=== PATIENT | female | born 2000 | race Caucasian/White ===

== ENCOUNTER 2024-12-12 01:54 | Inpatient (IN) ==
[2024-12-12] MEDS ORDERED: METHYLERGONOVINE 0.2 MG/ML VIAL IM PRN (02:08)
[2024-12-12] MEDS ORDERED: NIFEdipine 10 MG CAPSULE PO PRN (02:08)
[2024-12-12] MEDS ORDERED: fentaNYL 100 MCG/2 ML VIAL IVP PRN (02:08)
[2024-12-12] MEDS ORDERED: OXYTOCIN 10 UNIT/ML VIAL IM PRN (02:08)
[2024-12-12] MEDS ORDERED: ACETAMINOPHEN 325 MG TABLET PO PRN (02:08)
[2024-12-12] MEDS ORDERED: hydrALAZINE INJ 20 MG/ML VIAL IVP PRN ×2 (02:08)
[2024-12-12] MEDS ORDERED: ONDANSETRON 4 MG/2 ML VIAL IVP PRN (02:08)
[2024-12-12] MEDS ORDERED: SODIUM CHLORIDE FLUSH 0.9% 10 ML SYRINGE IVP PRN (02:08)
[2024-12-12] MEDS ORDERED: lidocaine 1% 20 ML MDV ID PRN (02:08)
[2024-12-12] MEDS ORDERED: ONDANSETRON ODT 4 MG TABLET TL PRN (02:08)
[2024-12-12] MEDS ORDERED: LABETALOL 20 MG/4 ML SYRINGE IVP PRN ×3 (02:08)
[2024-12-12] MEDS ORDERED: LACTATED RINGERS 1,000 ML IV PRN (02:08)
[2024-12-12 02:52] LABS: BASOPHILS # (AUTO) 0.1 10^3/uL (0.0-0.1); BASOPHILS % (AUTO) 0.5 %; EOSINOPHILS # (AUTO) 0.4 10^3/uL (0.0-0.7); EOSINOPHILS % (AUTO) 3.5 %; HCT - HEMATOCRIT 35.1 % (37.0-47.0); HGB - HEMOGLOBIN 11.4 g/dL (12.0-16.0); LYMPHOCYTES # (AUTO) 3.5 10^3/uL (1.5-3.5); LYMPHOCYTES % (AUTO) 29.7 %; MEAN CORPUSCULAR HEMOGLOBIN 31.1 pg (27.0-31.0); MEAN CORPUSCULAR HGB CONC 32.5 g/dL (32.0-36.0); MEAN CORPUSCULAR VOLUME 95.6 fL (81.0-99.0); MEAN PLATELET VOLUME 11.9 fL (7.9-10.8); MONOCYTES # (AUTO) 0.8 10^3/uL (0.0-1.0); MONOCYTES % (AUTO) 6.5 %; NEUTROPHILS # (AUTO) 6.8 10^3/uL (1.5-6.6); NRBC ABSOLUTE COUNT (AUTO) 0.02 x10^3/uL; NUCLEATED RED BLOOD CELLS AUTO 0.2 /100WBC; PLT - PLATELET COUNT 202 10^3/uL (130-450); RED BLOOD COUNT 3.67 10^6/uL (4.20-5.40); RED CELL DISTRIBUTION WIDTH 13.1 % (12.0-15.0); WHITE BLOOD COUNT 11.8 x10^3/uL (4.8-10.8)
[2024-12-12 03:06] LABS: ALBUMIN 3.5 g/dL (3.2-5.5); ALBUMIN/GLOBULIN RATIO 1.3 (1.0-2.2); BILIRUBIN,TOTAL 0.2 mg/dL (0.2-1.0); CALCIUM 8.7 mg/dL (8.5-10.3); CREATININE 0.5 mg/dL (0.6-1.3); POTASSIUM 3.8 mmol/L (3.5-4.5); TOTAL PROTEIN 6.2 g/dL (6.4-8.9)
[2024-12-12] MEDS: miSOPROStoL 100 MCG TABLET VG SCH (04:09)
[2024-12-12] MEDS: SODIUM CHLORIDE FLUSH 0.9% 10 ML SYRINGE IVP SCH (04:15)
[2024-12-12] MEDS ORDERED: metFORMIN 500 MG TABLET PO SCH (09:00)
--- NOTE | 2024-12-12 09:02 | HISTORY & PHYSICAL EXAMINATION ---
Admit History Visit Reason Visit Reason: Other (IOL) Smoking Status: Never smoker Other Maternal History Other Maternal History: HPI: Keisha is a 24 yo at 39w4d who is admitted for induction of labor in the setting A2DM on metformin. Presented for IOL overnight. Has received one dose of vaginal misoprostol. Seen at bedside with nurse and video Swedish interpretor. Feeling some contractions but they are not painful. Otherwise feeling well. Last growth US: 12/10/24 EFW 3544 g, 55 percentile. AC 90%tile. monitoring form, copied from record: LMP: uncertain (maybe sometime in Mar) ADRYAN by LMP: U/S: 07/25/24 @ 20+3 Final ADRYAN: 12/15/2024 BY 20WK US Pre- weight: 138 BMI: 25.8 - A1DM - referral for DM education, scheduled for 11/02. - growth US 10/16 EFW 69%tile, vertex, normal PEREZ, growth US ordered 11/22/24 - IOL between [id number] -started metformin at dinner 500 mg 36w5d and NSTs weekly to start 37 weeks. - Chlamydia on 07/25, treated. Swab repeated 08/23 neg. repeat before its a BOY - baby Rik Blood type:O+ Antibody screen:NEG CBC: 12.6/37.5/315 Rubella:NON IMM VZV:IMM HBsAg: NEG HepC: NR RPR/AB-EIA: NR HIV: NR Flu: 07/25/24 COVID: declines PAP: never - will collected . GC/CT: 07/25/24- POSITIVE CHLAMYDIA. 08/23/24 negative RECHECK AT 37WKS HSV: denies self/partner Genetic Testing: declined FAS:07/31 Placenta: fundal w/o previa Cord:3VC PEREZ: 16.2cm wnl EFW: 338g, no percentile 50gm GCT: 152 3 hr GTT: F 100 1H 236 2H 235 3H 137 TDAP: 09/20/2024 Breast Pump: 09/20/2024 3rd trimester PLT 279 HCT 35.0 HGB 11.8 3rd trimester RPR NR RSV- 11/13/24 GBS: 11/22/24 Delivery plan: IOL scheduled for 12/11 at 8am. contraception: possibly Nexplanon PE: Vitals signs reviewed in Centricity Gen: NAD Resp: non labored respirations Abd: gravid, non tender. EFW 3600g Ext: trace LE edema SVE: fingertip on presentation per RN report monitoring: FHTs: 140s bpm baseline, + accel, - decel, mod variability [place]: irregular, not painful FHTs: Cat 1 Labs: CBC, CMP, T&S reviewed A/P: Keisha is a 24 yo at 39w4d who is admitted for induction of labor: A2DM on metformin. GBS neg Rubella non immune - IOL consents previously reviewed and signed. - IOL started with PV misoprostol, we discussed other methods for cervical ripening/labor induction including cervical ripening balloon, pitocin, and AROM - Pain management per her request. - Will continue metformin 500mg BID for now with BG checks fasting and 2hr postprandial. Will check BGs more frequently once in labor. - We discussed possible increased risk of shoulder dystocia with AC > 90%tile (although, overall EFW 55%tile). Would recommend watching labor progress closely. We have discussed possible maternal and risks in the setting of a shoulder dystocia including possible increased risk of high degree maternal tears, nerve injury/brain injury/. She does express understanding. Jacinto Sanford MD HPI Current : Vital Signs Temperature 99.1 F 12/12/24 04:17 Pulse Rate 74 12/12/24 06:06 Respiratory Rate 17 12/12/24 04:17 Blood Pressure 135/73 H 12/12/24 06:06 O2 Saturation 99 12/12/24 04:17 Meds/Allgy Home Medications Ambulatory Orders Medication Instructions Recorded Confirmed vits no.126-ferrous fum 1 tab PO DAILY 07/04/24 12/12/24 28 mg iron-folic acid 800 mcg tablet (Classic ) blood sugar diagnostic (Blood #50 ea 09/21/24 11/22/24 Glucose Test strips) blood-glucose meter #1 ea 09/21/24 11/22/24 empty container (Needle Collection #1 ea 09/21/24 11/22/24 and Disposal misc) lancets 30 gauge (BD Microtainer #200 ea 09/21/24 11/22/24 Lancet) metformin 500 mg tablet 500 mg PO .daily before dinner #30 11/22/24 12/12/24 tabs Allergies Allergies Allergy/AdvReac Type Severity Reaction Status Date / Time No Known Drug Allergies Allergy Verified 11/22/24 13:24 PFSH Active Problems All Active Problems (Updated 09/21/24 @ 21:21 by Valerie Mckeon MD) Chlamydia (Acute) Gestational diabetes (Acute) Late care (Acute) Supervision of normal first (Acute) Social History Social History (Updated 07/04/24 @ 14:31 by Samra Gallo RN) Smoking Status: Never smoker Second hand tobacco smoke exposure: No Do you dip or chew tobacco?: No Do you vape?: No Living arrangement: At home Living Condition: With spouse/s.o. Level: Independent ETOH Use: None Substance Use: denies use Are you sexually active?: Yes Control Method: None Occupation: unemployed Physical Abdominal Exam Vital Signs: Temp Pulse Resp BP Pulse Ox 99.1 F 74 17 135/73 H 99 12/12/24 04:17 12/12/24 06:06 12/12/24 04:17 12/12/24 06:06 12/12/24 04:17 Plan for Labor Plan For Labor I expect patient to be DC'd or transferred within 96 hours.: Yes Conclusion/Plan Lab Results 12/12/24 02:40 12/12/24 02:40
[2024-12-12] MEDS: metFORMIN 500 MG TABLET PO SCH (10:00)
--- NOTE | 2024-12-12 12:08 | PHARMACY PROGRESS NOTE ---
Best Possible Medication History Admit Date and Time: 12/12/24 0208 Home Medications Medication Instructions Recorded Confirmed Type vits no.126-ferrous fum 1 tab PO DAILY 07/04/24 12/12/24 History 28 mg iron-folic acid 800 mcg tablet (Classic ) blood sugar diagnostic (Blood #50 ea 09/21/24 11/22/24 Rx Glucose Test strips) blood-glucose meter #1 ea 09/21/24 11/22/24 Rx empty container (Needle Collection #1 ea 09/21/24 11/22/24 Rx and Disposal misc) lancets 30 gauge (BD Microtainer #200 ea 09/21/24 11/22/24 Rx Lancet) metformin 500 mg tablet 500 mg PO .daily before dinner #30 11/22/24 12/12/24 Rx tabs Processed by: Pharmacy (Medication Reconciliation completed by Milking WorkerMarylu) Medications reviewed in ED?: No Medication History completed: Yes Patient Interview: Completed Secondary Source(s): Insurance records [facility] Statement: As the person ultimately responsible for medication therapy, providers are able to order a medication from an existing home medication list in [facility] via the "Reconcile Routine" prior to Confirmation of that medication by client technical support associate. Such practice is discouraged except when the physician, in their clinical judgment, deems that a medical need exists for a medication without regard to previous use.
[2024-12-12] MEDS: diphenhydrAMINE 25 MG CAPSULE PO PRN (22:40)
--- NOTE | 2024-12-13 06:58 | PROVIDER PROGRESS NOTE ---
Labor Progress Note Labor Progress Note Labor Progress Note/Additional Text: Patient doing well. No significant complaints, but contractions, when present, are moderate to intense. Every 4 to 6 minutes. heart tracing 140 bpm baseline, moderate variability, accelerations present, no decelerations. Contr actions every 4 to 6 minutes. Delivered to come out in approximately 2 hours, will recheck, consider amniotomy versus oxytocin at that time.
[2024-12-13] MEDS: PRENATAL VITAMIN TABLET PO SCH (08:15)
--- NOTE | 2024-12-13 20:17 | PROVIDER PROGRESS NOTE ---
Labor Progress Note Labor Progress Note Labor Progress Note/Additional Text: Examined patient after had a small amount of fluid. Balloon still in place, as I checked the patient, balloon was in the vagina, so deflated a little and removed from the vagina. Bulging membrane felt intact, so amniotomy was performed after discussing with patient. Moderate amount of clear fluid. Cervical exam 5/80/-2. heart tracing 140 beats per baseline, moderate variability, accelerations present, no decelerations. Category 1. Contractions every 2 to 6 minutes. Continue expectant management at this time. If hypotonic uterine contractions, will consider oxytocin.
[2024-12-14] MEDS: SODIUM CHLORIDE 0.9% 1,000 ML IY ONE (00:50)
--- NOTE | 2024-12-14 03:05 | PROVIDER PROGRESS NOTE ---
Labor Progress Note Uterine Monitoring Contraction Intensity: positive Strong Monitoring Monitor Mode: positive External ultrasound Heart Rate Baseline: 150 Heart Rate Variability: positive Moderate (6-25 bmp) Accelerations: positive Present, 15x15 Decelerations: positive Early, Variable and Intermittent (<50% x20 min) Strip Review: positive Category II Labor Progress Note Labor Progress Note/Additional Text: Patient continues to labor on her own without augmentation after amniotomy. Contractions are very spaced out, but very long lasting, about 2-3 minutes. Mixture of variable and early decelerations. Amnioinfusion running and some improvement. Making good progress though, and currently 9 cm. Discussed epidural, but since she is 9cm decided to wait on epidural. Will recheck shortly as progressing quickly.
[2024-12-14] MEDS ORDERED: LIDOCAINE 2%-EPI 1:100000 20 ML MDV ONE (04:52)
[2024-12-14] MEDS ORDERED: ROPIVACAINE 0.2% 200 MG/100 ML BAG EP ONE (04:52)
[2024-12-14] MEDS ORDERED: diphenhydrAMINE INJ 50 MG/ML VIAL IVP PRN (05:56)
[2024-12-14] MEDS ORDERED: LACTATED RINGERS 500 ML IV ONE (05:56)
[2024-12-14] MEDS ORDERED: ONDANSETRON 4 MG/2 ML VIAL IVP PRN (05:56)
[2024-12-14] MEDS ORDERED: NALBUPHINE 10 MG/ML AMP IVP PRN (05:56)
[2024-12-14] MEDS ORDERED: METOCLOPRAMIDE 10 MG/2 ML VIAL IVP PRN (05:56)
[2024-12-14] MEDS ORDERED: ROPIVACAINE 0.2% 200 MG/100 ML BAG EP PRN (05:56)
[2024-12-14] MEDS ORDERED: NALOXONE 0.4 MG/ML VIAL IVP PRN ×2 (05:56→10:45)
[2024-12-14] MEDS ORDERED: ePHEDrine 50 MG/ML VIAL IVP PRN (05:56)
--- NOTE | 2024-12-14 05:59 | ANESTHESIA PROCEDURE NOTE ---
Pre-Anesthesia VS, & Labs Diagnosis Surgical Diagnosis:: 39w4d, IOL for GDM, on metformin/labor pain Procedure Procedure: placement of labor epidural Vitals Vital Signs: Temp Pulse Resp BP Pulse Ox 36.8 C 92 16 132/76 H 98 12/13/24 16:30 12/13/24 16:30 12/13/24 16:30 12/13/24 16:30 12/13/24 16:30 Height (in): 5 ft 1 in Weight (kg): 79 kg Body Mass Index: 32.9 BMI Classification: Obese NPO Last Fluid Intake: currently clears Is Patient ?: Yes Estimated Due Date:: 12/14/24 Lab Results Current Lab Results: Laboratory Tests 12/14/24 05:52: POC Whole Bld Glucose 143 12/14/24 03:15: POC Whole Bld Glucose 110 12/14/24 00:19: POC Whole Bld Glucose 82 12/13/24 22:18: POC Whole Bld Glucose 83 12/13/24 19:44: POC Whole Bld Glucose 94 12/13/24 13:55: POC Whole Bld Glucose 109 12/13/24 09:55: POC Whole Bld Glucose 103 12/13/24 07:19: POC Whole Bld Glucose 81 12/13/24 03:15: POC Whole Bld Glucose 108 12/12/24 20:28: POC Whole Bld Glucose 90 12/12/24 14:47: POC Whole Bld Glucose 85 12/12/24 10:30: POC Whole Bld Glucose 104 12/12/24 07:36: POC Whole Bld Glucose 82 12/12/24 02:40: WBC 11.8 H, RBC 3.67 L, Hgb 11.4 L, Hct 35.1 L, MCV 95.6, MCH 31.1 H, MCHC 32.5, RDW 13.1, Plt Count 202, MPV 11.9 H, Neut # (Auto) 6.8 H, Lymph # (Auto) 3.5, [place] # (Auto) 0.8, Eos # (Auto) 0.4, Baso # (Auto) 0.1, Absolute Nucleated RBC 0.02, Nucleated RBC % 0.2, Sodium 133 L, Potassium 3.8, Chloride 105, Carbon Dioxide 19 L, Anion Gap 9.0, BUN 16, Creatinine 0.5 L, Estimated GFR (MDRD) 153, Glucose 119 H, Calcium 8.7, Total Bilirubin 0.2, AST 23, ALT 19, Alkaline Phosphatase 176 H, Total Protein 6.2 L, Albumin 3.5, Globulin 2.7, Albumin/Globulin Ratio 1.3, Blood Type O POSITIVE, Antibody Screen NEGATIVE Lab results reviewed: Yes 12/12/24 02:40 12/12/24 02:40 Meds/Allgy Home Medications Ambulatory Orders Medication Instructions Recorded Confirmed vits no.126-ferrous fum 1 tab PO DAILY 07/04/24 12/12/24 28 mg iron-folic acid 800 mcg tablet (Classic ) blood sugar diagnostic (Blood #50 ea 09/21/24 11/22/24 Glucose Test strips) blood-glucose meter #1 09/21/24 11/22/24 empty container (Needle Collection #1 ea 09/21/24 11/22/24 and Disposal misc) lancets 30 gauge (BD Microtainer #200 09/21/24 11/22/24 Lancet) metformin 500 mg tablet 500 mg PO .daily before dinner #30 11/22/24 12/12/24 tabs Allergies Allergies Allergy/AdvReac Type Severity Reaction Status Date / Time No Known Drug Allergies Allergy Verified 11/22/24 13:24 PFSH Active Problems All Active Problems Gestational diabetes (Acute) Chlamydia (Acute) Late care (Acute) Supervision of normal first (Acute) Social History Social History Smoking Status: Never smoker Second hand tobacco smoke exposure: No Do you dip or chew tobacco?: No Do you vape?: No Living arrangement: At home Living Condition: With spouse/s.o. Level: Independent ETOH Use: None Substance Use: denies use Are you sexually active?: Yes Control Method: None Occupation: unemployed Anesthesia Exam (Expanded) Exam General: Mild distress Dental: WNL Mouth Openin Fingerbreadth Neck Mobility: Normal Mallampati classification: II Thyromental Distance: 4-6 cm Plan Plan Anesthesia Type: Epidural Consent for Procedure(s) Verified and Reviewed: Yes Code Status: Attempt Resuscitation ASA Classification ASA classification: 2-Mild systemic disease Is this case an emergency?: No
[2024-12-14] MEDS: OXYTOCIN/SODIUM CHLORIDE 500 ML IV PRN (06:06)
[2024-12-14] MEDS: LACTATED RINGERS 1,000 ML IV PRN (09:26)
[2024-12-14] MEDS: CARBOPROST TROMETHAMINE 250 MCG/ML VIAL IM PRN (10:03)
[2024-12-14] MEDS: miSOPROStoL 200 MCG TABLET BC PRN (10:06)
[2024-12-14] MEDS: TRANEXAMIC ACID IN NACL 1,000 MG/100 ML BAG IV PRN (10:07)
[2024-12-14] MEDS ORDERED: HYDROCORTISONE 1% CREAM 28 GM TUBE TOP PRN (10:45)
[2024-12-14] MEDS ORDERED: WITCH HAZEL/GLYCERIN 1 PAD TOP PRN (10:45)
[2024-12-14] MEDS ORDERED: hydrALAZINE INJ 20 MG/ML VIAL IVP PRN ×2 (10:45)
[2024-12-14] MEDS ORDERED: NIFEdipine 10 MG CAPSULE PO PRN (10:45)
[2024-12-14] MEDS ORDERED: SIMETHICONE CHEW 80 MG TABLET PO PRN (10:45)
[2024-12-14] MEDS ORDERED: oxyCODONE 5 MG TABLET PO PRN (10:45)
[2024-12-14] MEDS ORDERED: LABETALOL 20 MG/4 ML SYRINGE IVP PRN ×2 (10:45)
[2024-12-14] MEDS ORDERED: OXYTOCIN/SODIUM CHLORIDE 500 ML IV PRN (10:45)
[2024-12-14] MEDS ORDERED: LABETALOL 5 MG/1 ML 20 ML MDV IVP PRN (10:45)
[2024-12-14] MEDS: ceFAZolin (2G) 2 GM in SODIUM CHLORIDE 0.9% MINIBAG 100 ML IV ONE (11:39)
--- NOTE | 2024-12-14 11:47 | DELIVERY NOTE ---
Delivery Note Labor Labor: positive Augmented by ARM Delivery Method Delivery Method: positive Spontaneous vaginal delivery Cervical Ripening Method Cervical Ripening Method: positive Balloon device and Misoprostil Presentation Presentation: positive Vertex and FRANCISCO - right occiput anterior Nuchal Cord Nuchal Cord: positive Present Amniotic Fluid Description Amniotic Fluid Description: positive Clear Episiotomy Type Episiotomy Type: positive None Laceration Laceration: positive 2nd degree Suture Suture Size: positive 3-0 (Rapide) Delivery Outcome Delivery Date: 12/14/24 Delivery Time: 09:54 Delivery Outcome: positive Livebirth [place]: positive Placed in direct skin contact with mother and Stimulated [place] sex: positive Male Cord Cord: positive 3 vessels Placenta Placenta: positive Spontaneous and Curettage Estimated Blood Loss Estimated Blood Loss (in cc): 522 Post Delivery Events Post Delivery Events: positive Other (intermittent atony, retained membranes) Delivery Comments (Free Text/Narrative) Delivery Comments (Free Text/Narrative): I was called to the bedside for patient complete and ready to deliver. After delivery of the head, the anterior shoulder did not immediately delivery with gentle downward traction. I felt for the location of the anterior shoulder again and then gentle downward pressure was applied once more and the anterior shoulder delivered easily. The posterior shoulder then the remainder of the body followed. The infant was placed on the mother's abdomen. After 60 sec the cord was clamped times two and cut. Cord blood collected. Pitocin was started. The placenta delivered spontaneously very quickly. Intermittent atony was noted and bimanual massage performed. She received IM hemabate, followed by IV TXA and 600mcg buccal misoprostol. On bimaual exam, small amount of membranes were palpable on the anterior uterine wall with intermittent gushes of blood. Using Northern Irish interpretor, I recommended that we perform a gentle currettage to ensure no membranes/placental tissue remained. The bladder was emptied with a red rubber catheter. Gentle curretage was performed with US guidance. Bleeding improved and good uterine tone noted. The 2nd degree perineal laceration was repaired with 3-0 Rapide. Perineal hemostasis noted at completion of procedure. Laps were weighed with 322cc estimate, plus approximately 200cc of blood in the bag mixed with significant amount of amniotic fluid. Total estimated to be 522cc. Plan for 2g ancef. Jacinto Sanford MD
[2024-12-14] MEDS: ACETAMINOPHEN 500 MG TABLET PO PRN (11:53)
[2024-12-14] MEDS: IBUPROFEN 600 MG TABLET PO PRN (11:54)
[2024-12-14] MEDS: DIPHENOX/ATROPINE 2.5/0.025 MG TABLET PO PRN (12:54)
[2024-12-15] MEDS: DOCUSATE SODIUM 100 MG CAPSULE PO SCH (09:14)
[2024-12-15] MEDS ORDERED: MEASLES,MUMPS & RUBELLA VACC 0.5 ML VIAL SUBQ ONE (10:02)
--- NOTE | 2024-12-15 10:02 | PROVIDER PROGRESS NOTE ---
Subjective Prog Note Date Prog Note Date: 12/15/24 Prog Note Time: 10:01 Subjective Subjective: Reports some cramping as well as discomfort from her laceration repair. RN at bedside at time of interview with pain medications to give her. She does feel like they help. She has been up ambulating around room. Urinating without difficulty. Reports that bleeding has been appropriate. She is and supplementing with formula. Current Medications Current Medications Current Medications: Current Medications Generic Name Dose Route Start Last Admin Trade Name Verito PRN Reason Stop Dose Admin Acetaminophen 650 mg 12/12/24 02:08 Acetaminophen 325 Mg Tablet PO Q6H PRN Mild Pain or Fever>38C(100.4F) Acetaminophen 1,000 mg 12/14/24 10:45 12/15/24 09:11 Acetaminophen 500 Mg Tablet PO 1,000 mg Q8HR PRN Administration Mild Pain or Fever>38C(100.4F) Diphenhydramine HCl 25 mg 12/12/24 21:53 12/12/24 22:40 Diphenhydramine 25 Mg Capsule PO 25 mg QPM PRN Administration Insomnia Diphenhydramine HCl 12.5 - 25 mg 12/14/24 05:56 Diphenhydramine Inj 50 Mg/Ml Vial IVP Q6HR PRN ITCHING Diphenoxylate HCl/Atropine 1 tab 12/14/24 12:32 12/14/24 12:54 Diphenox/Atropine 2.5/0.025 Mg Tablet PO 1 tab QID PRN Administration Diarrhea Docusate Sodium 100 mg 12/14/24 21:00 12/15/24 09:14 Docusate Sodium 100 Mg Capsule PO 100 mg BID ROMEO Administration Hydralazine HCl 5 - 20 mg 12/12/24 02:08 Hydralazine Inj 20 Mg/Ml Vial IVP Q20M PRN SBP >160 or DBP >110 Protocol Hydralazine HCl 10 mg 12/12/24 02:08 Hydralazine Inj 20 Mg/Ml Vial IVP 12/17/24 02:08 .ONCE PRN Step 9 of Labetalol protocol Protocol Hydralazine HCl 10 mg 12/14/24 10:45 Hydralazine Inj 20 Mg/Ml Vial IVP .ONCE PRN SBP> or= 160 OR DBP> or= 110 Protocol Hydralazine HCl 5 - 10 mg 12/14/24 10:45 Hydralazine Inj 20 Mg/Ml Vial IVP Q20M PRN SBP >=160 and/or DBP >=110 Protocol Hydrocortisone 1 applic 12/14/24 10:45 Hydrocortisone 1% Cream 28 Gm Tube TOP QID PRN Hemorrhoids Lactated Ringer's 1,000 mls @ 100 mls/hr 12/12/24 02:08 12/14/24 14:23 Lr IV Infused .Q10H PRN Infusion Save for active labor Ibuprofen 600 mg 12/14/24 10:45 12/15/24 09:14 Ibuprofen 600 Mg Tablet PO 600 mg Q6HR PRN Administration Moderate Pain (Level 4-6) Labetalol HCl 20 - 80 mg 12/12/24 02:08 Labetalol 20 Mg/4 Ml Syringe IVP Q10M PRN SBP >160 or DBP >110 Protocol Labetalol HCl 20 mg 12/12/24 02:08 Labetalol 20 Mg/4 Ml Syringe IVP 12/17/24 02:08 .ONCE PRN Step 9 of nifedipine protocol Protocol Labetalol HCl 40 mg 12/12/24 02:08 Labetalol 20 Mg/4 Ml Syringe IVP 12/17/24 02:08 .ONCE PRN Step 9 of hydrALAZine protocol Protocol Labetalol HCl 20 - 80 mg 12/14/24 10:45 Labetalol 5 Mg/1 Ml 20 Ml Mdv IVP Q10M PRN SBP> or= 160 OR DBP> or= 110 Protocol Labetalol HCl 20 - 40 mg 12/14/24 10:45 Labetalol 20 Mg/4 Ml Syringe IVP Q10M PRN SBP> or= 160 OR DBP> or= 110 Protocol Labetalol HCl 20 mg 12/14/24 10:45 Labetalol 20 Mg/4 Ml Syringe IVP .ONCE PRN SBP >=160 and/or DBP >=110 Protocol Lidocaine HCl 20 ml 12/12/24 02:08 Lidocaine 1% 20 Ml Mdv ID 12/17/24 02:08 .ONCE PRN PERINEAL REPAIR Metoclopramide HCl 10 mg 12/14/24 05:56 Metoclopramide 10 Mg/2 Ml Vial IVP Q6HR PRN Nausea / Vomiting Nifedipine 10 - 20 mg 12/12/24 02:08 Nifedipine 10 Mg Capsule PO Q20M PRN SBP >160 or DBP >110 Protocol Nifedipine 10 - 20 mg 12/14/24 10:45 Nifedipine 10 Mg Capsule PO Q20M PRN SBP >=160 and/or DBP >=110 Protocol Ondansetron HCl 4 mg 12/12/24 02:08 Ondansetron 4 Mg/2 Ml Vial IVP Q4HR PRN Nausea / Vomiting Ondansetron HCl 4 mg 12/12/24 02:08 Ondansetron Odt 4 Mg Tablet TL Q4HR PRN Nausea / Vomiting Ondansetron HCl 4 mg 12/14/24 05:56 Ondansetron 4 Mg/2 Ml Vial IVP Q6HR PRN Nausea / Vomiting Oxycodone HCl 5 mg 12/14/24 10:45 Oxycodone 5 Mg Tablet PO Q4HR PRN Severe Pain 6-10 Multivit/Folic Acid/Iron 1 tab 12/13/24 08:00 12/15/24 09:14 Vitamin Tablet PO 1 tab DAILYWM ROMEO Administration Simethicone 80 mg 12/14/24 10:45 Simethicone Chew 80 Mg Tablet PO TID PRN Gas Sodium Chloride 10 ml 12/12/24 09:00 12/12/24 08:59 Sodium Chloride Flush 0.9% 10 Ml Syringe IVP 10 ml 0100,0900,1700 ROMEO Administration Sodium Chloride 10 ml 12/12/24 02:08 Sodium Chloride Flush 0.9% 10 Ml Syringe IVP PRN PRN NEEDED PER PROVIDER ORDERS Witch Elza/Glycerin 1 pad 12/14/24 10:45 Witch Elza/Glycerin 1 Pad TOP PRN PRN ITCHING Objective Vital Signs/Intake & Output Reviewed Vital Signs: Yes Vital Signs: Vital Signs x48h Temp Pulse Resp BP Pulse Ox 12/15/24 03:35 98.6 F 91 17 108/50 L 99 Intake & Output: Intake & Output 12/12/24 12/13/24 12/14/24 12/15/24 23:59 23:59 23:59 23:59 Intake Total 500 / 500 2211 / 2211 Output Total 630 / 630 Balance - / -1 500 / 500 1581 / 1581 Weight (kg) 175 lb 174 lb 2.643 oz Objective Comments/Other: Gen: NAD Chest: non labored respirations Abd: fundus firm, mildly TTP, no significant fundual tenderness. Ext: no LE edema Lab Results 12/12/24 02:40 12/12/24 02:40 Assessment/Plan Problem List (1) care and examination of lactating mother: Impression: - Continue routine care. Likely discharge home tomorrow. (2) Gestational diabetes: Impression: plan for 2hr GTT at 6wks (3) Retained placenta or membranes: (4) Rubella non-immune status, antepartum: Impression: - MMR prior to discharge (5) Gestational hypertension: Impression: - Intermittent mild range BPs noted during labor, labs were normal on admission. BPs normal since delivery, will continue to monitor.
[2024-12-16 09:46] VITALS: BP 127/72; TEMP 98.1; O2SAT 98
--- NOTE | 2024-12-16 10:55 | Discharge Summary ---
Discharge Summary Admit Date: 12/12/24 Discharge Date: 12/16/24 Discharging Provider: Jacinto Sanford [facility] History of Present Illness: Admission Diagnosis: - SIUP at 39w4d - A2DM on metformin - Rubella non immune Discharge Diagnosis: - Same, delivered - Possible retained placental membranes at time of delivery - Gestational hypertension Procedures: , curettage, repair of 2nd degree laceration Hospital Course: Keisha is a 24 yo now who presented at 39w4d for IOL in the setting of A2DM on metformin. She received misoprostol followed by cervical ripening balloon, and then underwent amniotomy and pitocin augmentation. She had a which was complicated by intermittent atony with possible retained placental membranes. She received IM hemabate, TXA, and buccal misoprostol at time of delivery and curretage was performed with Banjo curette. Total EBL 522cc. She had intermittent mild range blood pressures during labor, meeting criteria for gHTN. Labs were normal. Her course has been uncomplicated. Condition on Discharge: SUBJECTIVE: day 2 s/p She feels well. Pain is well controlled with current medications. The baby is doing well. Baby is feeding via breast and bottle feeding. She is ambulating well, tolerating normal diet, urinating without difficulty. Lochia is reported as normal. THey are comfortable with discharge home today. OBJECTIVE: Vital signs reviewed GENERAL: NAD CHEST: non labored respirations ABD: soft, non tender, fundus firm EXT: trace lower extremity edema; No evidence of DVT LAB & IMAGING STUDIES: See below PLAN: Plan for discharge home with follow up in clinic on or Tuesday. They will call tomorrow to schedule. Reviewed home care instructions and medications. Patient counseled regarding signs and symptoms of infection, excessive bleeding, vaginal rest and activity restrictions. Preeclampsia precautions were reviewed. Planning for Nexplanon at 6wk visit. Discussed that additional support is available in our clinic if needed. Will need 2hr GTT in period. Jacinto Sanford MD ALLERGIES Allergies Allergy/AdvReac Type Severity Reaction Status Date / Time No Known Drug Allergies Allergy Verified 11/22/24 13:24 MEDICATIONS Ambulatory Orders Medication Instructions Recorded Confirmed vits no.126-ferrous fum 1 tab PO DAILY 07/04/24 12/12/24 28 mg iron-folic acid 800 mcg tablet (Classic ) acetaminophen 325 mg tablet 650 mg (2 x 325 mg) PO Q6H PRN 12/16/24 pain #30 tabs ibuprofen 600 mg tablet 600 mg PO Q6HR PRN pain #30 tabs 12/16/24 PHYSICAL EXAM AT DISCHARGE Vital Signs: Vital Signs x48h Temp Pulse Resp BP Pulse Ox 12/16/24 09:00 98.1 F 93 17 127/72 98 12/16/24 06:34 98.4 F 90 16 128/81 99 LABS 12/12/24 02:40 12/12/24 02:40 Discharge Plan Discharge Patient Disposition: Home, Self Care Prescriptions: New acetaminophen 325 mg Tablet 650 mg PO Q6H PRN (Reason: pain) Qty: 30 0RF ibuprofen 600 mg Tablet 600 mg PO Q6HR PRN (Reason: pain) Qty: 30 0RF Continued Classic 28 mg iron- 800 mcg tablet 1 tab PO DAILY Discontinued (DME) Needle Collection and Disposal Misc See Rx Instructions .MEDSUPPLY Qty: 1 8RF Rx Instructions: As directed for lancet disposal (DME) blood-glucose meter Kit See Rx Instructions .Route Qty: 1 0RF Rx Instructions: for qid testing for rest of pregnanct (DME) Blood Glucose Test Strip See Rx Instructions .Route Qty: 50 8RF Rx Instructions: As directed, for qid testing. (DME) lancets [BD Microtainer Lancet] 30 gauge misc See Rx Instructions .Route Qty: 200 8RF Rx Instructions: As directed, for qid testing metformin 500 mg tablet 500 mg PO .daily before dinner Qty: 30 2RF Patient Comments: Patient states she hasn't taken since 12/09, that she was taking in the afternoon- and was supposed to be moving up to twice daily, AM, PM. Print Language: Indian/Castilian Patient Instructions: Vaginal After, Childbirth Breast Care, Vaginal Incis Care, Depression , Change Expect Parents Follow-up Care: Jacinto Sanford MD [Provider Admit Priv/Credential] -
[2024-12-16] MEDS: MEASLES,MUMPS & RUBELLA VACC 0.5 ML VIAL SUBQ ONE (14:02)
--- NOTE | 2024-12-16 17:03 | Labor Flowsheet ---
Labor Flowsheet Datetime Report Generated by CPN: 12/16/2024 17:03 Datetime: 12/16/2024 09:09 Pulse: 106 SpO2 (%): 98 LaborFlag: Antepartum Datetime: 12/16/2024 09:03 VITAL SIGNS NBP Sys/Sara/Mean (mmHg): 127 : 72 : 84 Datetime: 12/14/2024 14:54 Membranes Ruptured Date/Time: 12/14/2024 08:00 Datetime: 12/14/2024 10:35 Medication Comments: 2nd bag ppp started @250 Datetime: 12/14/2024 10:34 COMMUNICATION Communication: Provider at Bedside Communication Comments: finishing stitches and performing count Datetime: 12/14/2024 10:33 Respirations: 18 Temperature (C): 36.7 Datetime: 12/14/2024 10:06 Cervical Ripening Agents: Cytotec @ Datetime: 12/14/2024 09:56 MEDICATIONS Pitocin (milliunits): Increased to @ 999 Datetime: 12/14/2024 09:34 Notification Reason: Status Update; Maternal Vital Sign Change Datetime: 12/14/2024 09:29 Patient Care Comments: new bag LR @ 125 Datetime: 12/14/2024 08:45 STAGE 2 Pushing Position: Pushing with Contractions; Pushing Lithotomy Datetime: 12/14/2024 08:14 Stage 2 Comments: start of pushing Datetime: 12/14/2024 08:12 I/O Interventions: [place] Discontinued Datetime: 12/14/2024 07:56 VAGINAL EXAM Dilatation (cm): 10.0 Effacement (%): 100 Exam by: Dr. Sanford Vaginal Exam Comments: complete Datetime: 12/14/2024 06:44 Comments: replaced EFM unit due to battery Datetime: 12/14/2024 05:22 Epidural Procedure: Loading Dose Datetime: 12/14/2024 04:59 Anesthesia Comments: consent signed Datetime: 12/14/2024 03:18 Temperature Route: Oral Datetime: 12/14/2024 03:02 Station: 1 Datetime: 12/14/2024 02:25 Pain Assessment Comments: pt requests epidural. pt and fob educated about questions. 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 Datetime: 12/14/2024 00:48 Monitor Interventions for UA: IUPC Inserted Datetime: 12/14/2024 00:30 FHR Baseline Changes: Tachycardia Datetime: 12/13/2024 20:00 Membrane Status: Ruptured Membranes Rupture Method: Artificial Amniotic Fluid Color: Clear Amniotic Fluid Amount: Moderate Membrane Comments: AROM by Dr. Beaulieu and mariaelena balloon removed Datetime: 12/13/2024 10:23 Patient Position/Activity: Walking Datetime: 12/13/2024 08:00 UTERINE ACTIVITY Monitor Mode: Internal Frequency (min): 4.5-5 Quality: Strong Duration (sec): 90-120 Pattern: Normal: <= 5 Contractions in 10 Minutes Resting Tone (Palpate): Relaxed Resting Tone IUP (mmHg): 0 Pitocin Checklist: At Least 1 Acceleration of 15 bpm x 15 Seconds in 30 Minutes or Adequate Variabi lity; No More than 1 Late Deceleration Occurred in Past 30 Minutes; No More than 2 Variable Decelerat ions > 60 Seconds in Duration and decreasing >60 bpm in 30 minutes; No More than 5 Uterine Contractio ns in 10 Minutes for any 20 Minute Interval; Uterus Palpates Soft between Contractions ASSESSMENT A Monitor Mode: Telemetry FHR Baseline Rate : 140 Variability: Moderate 6-25 bpm Accelerations: 15X15 Decelerations: None Category: Category I Datetime: 12/13/2024 07:45 Contraction Comments: unable to assess Datetime: 12/13/2024 07:15 [place] Units (mmHg): 95 Datetime: 12/13/2024 07:00 PATIENT CARE Oxygen Method: Room Air Datetime: 12/13/2024 03:05 Vaginal Bleeding: None Cervix, Consistency: Soft Cervix, Position: Midposition Datetime: 12/13/2024 03:00 MATERNAL ASSESSMENT Level of Consciousness: Alert Headache: Denies Nausea/Vomiting: Denies RUQ Epigastric Pain: Denies Datetime: 12/12/2024 22:55 Vital Sign Comments: BP taken after cervical exam, will recheck when pt is finished eating. Datetime: 12/12/2024 19:47 DTR's/Clonus: DTRs 2+ Breath Sounds, Left: Clear and Equal Breath Sounds, Right: Clear and Equal Maternal Comments: bilat ankles swelling, trace-+1 pitting edema noted at this time. R leg more daija matous than left at this time. from what rn gathered, it seems as though edema is dependent. rn will monitor throughout shift. pt instructed to alert rn if she feels the edema worsening or if it becomes more painful. Datetime: 12/12/2024 19:30 PAIN Pain Scale: 2 Pain Presence: Intermittent Pain Type: Cramping Pain Location: Abdomen Pain Coping: Talking Through Contractions ANESTHESIA Anesthesia Plans: Uncertain TEACHING Instructional Method: Verbal Plan of Care: Plan of Care Discussed; Vaginal Delivery; Labor; Induction Unit Routine: [facility] to Room; Call [place]; Bed; Unit Personnel; Monitoring; IV Pumps; Safety/Fa ll Risk Prevention; Diet/Nutrition Services; Bathroom Privileges; Medications Labor/Induction: Labor Stages; Cervical Ripening; Induction; Tachysystole Interventions; Inte rventions; Activity Pain Management: IV Narcotics; Epidural; PRN Medications; Pain Scale/Goals; Comfort Measures Medications: IV Narcotics; Cervical Ripening Related: Common Discomforts of ; Maternal Physical Changes; Maternal Emotional C hanges; Nutrition; Hydration; Activity and Rest Datetime: 12/12/2024 02:30 Stage of : Antepartum
== END 2024-12-16 14:00 | disposition home or self-care (01) | DRG 797 ==
LOC: WFO 01:54 → FBP 01:54
PROVIDERS: ADMIT Obstetrics & Gynecology; ATTEND Obstetrics & Gynecology